=== PATIENT | female | born 1970 | race American Indian/Alaskan Native ===

== ENCOUNTER 2020-06-06 09:19 | Outpatient (CLI) | payer OTHER ==
--- NOTE | 2020-06-06 10:27 | Mammography Report ---
RIGHT DIGITAL DIAGNOSTIC MAMMOGRAM WITH CAD CONVENTIONAL, 06/06/2020 RIGHT LIMITED BREAST ULTRASOUND CLINICAL INFORMATION / INDICATION: Patient presents for six-month follow-up following benign right b reast ultrasound-guided biopsy, with pathology demonstrating fibroadenoma. TECHNIQUE: Digital right mammographic imaging was performed. Limited ultrasound was performed. This e xamination was interpreted with the benefit of Computer-Aided Detection (CAD) analysis. COMPARISON: Prior mammogram 10/12/2019 and right breast ultrasound 10/12/2019 FINDINGS: Breast Density: The breasts are heterogeneously dense, which may obscure small masses. MAMMOGRAPHIC FINDINGS: There is a stable 2.5 cm nodular density seen in the far posterior and slightl y superior right breast with associated biopsy clip, compatible with biopsy-proven fibroadenoma. Ther e has been no significant change compared with the prior examination. ULTRASOUND FINDINGS: Targeted ultrasound evaluation was performed of the area of interest. There is a stable oval circumscribed hypoechoic mass in the right breast 12:30 position located 8 cm from the nipple, currently measuring up to 1.9 x 1.9 x 1.1 cm, previously 2.1 x 1.1 x 1.7 cm. A biopsy clip i s seen within the mass. IMPRESSION: 1. 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 No suspicious george mographic or sonographic abnormality identified. Follow up recommendation: Back to schedule. BI-RADS Category 2: Benign. A "normal" or negative report should not discourage follow up or biopsy of a clinically significant f inding. A written summary of these findings will be mailed to the patient. The patient will be entered into a mammography reporting system which will generate a reminder letter for the patient's next appointmen t at the appropriate interval. According to the [employer], yearly mammograms are recommended starting at age 40 and continuing as long as a woman is in good health. Breast MRI is recommended for women with an chiquis roximately 20-25% or greater lifetime risk of breast cancer, including women with a strong family his tory of breast or ovarian cancer and women who have been treated for Hodgkin's disease. Signer Name: Heavenly Matute MD Signed: 06/06/2020 10:22 AM Workstation Name: [id number]
== END 2020-06-06 09:20 | disposition home or self-care (01) ==
LOC: SPVWC 09:19
PROVIDERS: ATTEND Surgery
DX: N63.12 Unspecified lump in the right breast, upper inner quadrant (principal); N63.14 Unspecified lump in the right breast, lower inner quadrant; R92.8 Other abnormal and inconclusive findings on diagnostic imaging of breast

== ENCOUNTER 2020-12-12 08:59 | Outpatient (CLI) | payer OTHER ==
--- NOTE | 2020-12-12 13:38 | Mammography Report ---
BILATERAL DIGITAL SCREENING MAMMOGRAM WITH CAD WITH TOMOSYNTHESIS HISTORY: Screening mammogram, history of benign biopsies within both breasts. TECHNIQUE: Routine digital mammographic imaging performed. This examination was interpreted with kacy baum benefit of Computer-aided Detection analysis. Tomosynthesis images were acquired and reviewed. COMPARISON: 06/06/2020, 11/18/2019, 10/12/2019, 06/15/2018, 01/10/2017. FINDINGS: Breast Density: heterogeneously dense breast parenchymal pattern which somewhat lessens the sensitivi ty of the evaluation. Digital CC and MLO views demonstrate no mammographic evidence of malignancy. No significant change i n multiple circumscribed and obscured oval and round masses in both breasts. Stability, multiplicity, and bilaterality would support a benign etiology. Dominant masses in the right upper inner posterior breast and left lower inner breast are noted at sites of prior benign biopsies. IMPRESSION: No mammographic evidence of malignancy. If the clinical examination remains stable, recommend bilate ral mammogram in approximately one year. BIRADS 2: Benign Finding(s). FURTHER INFORMATION: According to the [employer], yearly mammograms are recommend ed starting at age 40 and continuing as long as a woman is in good health. Clinical Breast Exams shou ld be part of a periodic health exam-about every 3 years for women in their 20s and 30s and every yea r for women 40 and over. Breast self exam is an option for women starting in their 20s. Any breast ch tani noted on a breast self exam should be reported promptly to the patient's healthcare provider. Br east MRI is recommended for women with an approximately 20-25% or greater lifetime risk of breast can cer, including women with a strong family history of breast or ovarian cancer and women who have been treated for Hodgkin's disease. A negative Mammography report should not discourage follow up or biopsy of a clinically significant f inding and/or abnormality. Dense breast tissue may obscure small neoplasms. The patient will be entered into a reminder system with a target due date for the next screening mamm ogram. Screening Signer Name: Miguel Angel Gunter MD Signed: 12/12/2020 1:33 PM Workstation Name: [id number]
== END 2020-12-12 09:00 | disposition home or self-care (01) ==
LOC: SPVWC 08:59
PROVIDERS: ATTEND Surgery
DX: Z12.31 Encounter for screening mammogram for malignant neoplasm of breast (principal); N64.89 Other specified disorders of breast
CPT/HCPCS: 77063; 77067